=== PATIENT | male | born 1940 ===

== ENCOUNTER 2024-08-18 12:15 | Inpatient (IN) | payer OTHER ==
[~2024-08-18] VITALS: Ht 177.8 cm; Wt 74.4 kg
[2024-08-18] MEDS ORDERED: COZAAR50 MG PO (13:22)
[2024-08-18] MEDS ORDERED: METHOTREXATE2.5 MG PO (13:22)
[2024-08-18] MEDS ORDERED: ATORVASTATIN CA20 MG PO (13:22)
[2024-08-18] MEDS ORDERED: SINGULAIR10 MG PO (13:23)
[2024-08-18] MEDS ORDERED: ELIQUIS2.5 MG PO (13:23)
[2024-08-18] MEDS ORDERED: FINASTERIDE5 MG PO (13:23)
[2024-08-18] MEDS ORDERED: TAMS0.4C PO (13:23)
[2024-08-18] MEDS ORDERED: ADVAIR HFA 230/12 GM IH (13:24)
[2024-08-18 13:25] VITALS: BP 145/86
[2024-08-24] MEDS ORDERED: LIDOCAINE HCL 1%/EPINEPHRINE 20ML VIAL IJ ONE (08:45)
[2024-08-24] MEDS ORDERED: CEFTRIAXONE SODIUM 2,000 MG VIAL IV ONE (08:45)
[2024-08-24] MEDS ORDERED: BUPIVACAINE HCL 30 ML VIAL IJ ONE (08:45)
[2024-08-24] MEDS ORDERED: METRONIDAZOLE/SODIUM CHLORIDE 500 MG/100 ML PIGGYBACK IV ONE (08:45)
[2024-08-24] MEDS ORDERED: ONDANSETRON HCL 2 MG/ML VIAL IV PRN (09:30)
[2024-08-24] MEDS ORDERED: OxyCODONE HCL 5 MG TABLET (ROXICODONE) PO PRN (09:30)
[2024-08-24] MEDS ORDERED: 0.9 % SODIUM CHLORIDE 1,000 ML IV SCH (09:30)
[2024-08-24] MEDS ORDERED: DEXTROSE 50 % IN WATER 0.5 G/ML DISP.SYRIN IV PRN (09:30)
[2024-08-24] MEDS ORDERED: MORPHINE SULFATE 4 MG/ML CARTRIDGE IV PRN (09:30)
[2024-08-24] MEDS ORDERED: SUGAMMADEX SODIUM 200 MG/2 ML VIAL IV ONE (10:00)
[2024-08-24] MEDS ORDERED: MORPHINE SULFATE 4 MG/ML VIAL IV ONE (11:45)
[2024-08-24] MEDS ORDERED: HYOSCYAMINE SULFATE 0.125 MG TAB.SUBL SL SCH (13:00)
[2024-08-24] MEDS ORDERED: SIMETHICONE 125 MG CAPSULE PO SCH (13:00)
[2024-08-24] MEDS ORDERED: ACETAMINOPHEN 500 MG GEL..CAP PO SCH (14:00)
[2024-08-24] MEDS ORDERED: DEXTROSE 50 % IN WATER 0.5 G/ML VIAL IV PRN (14:30)
[2024-08-24 15:26] LABS: BASO % 0.1 % (0.1-1.2); EOS # 0.00 (0.04-0.54); EOS % 0.0 % (0.7-7.0); LYMPH # 0.69 (1.18-3.74); LYMPH % 4.9 % (19.3-53.1); MEAN PLATELET VOLUME 9.40 fl (9.4-12.4); MONO # 0.91 (0.24-0.82); MONO % 6.5 % (4.7-12.5); NEUT # 12.40 (1.56-6.13); NEUT % 88.0 % (34.0-71.1); RED CELL DISTRIBUTION WIDTH 14.9 % (11.6-14.4)
[2024-08-24] MEDS ORDERED: GABAPENTIN 300 MG CAPSULE PO SCH (17:00)
[2024-08-24] MEDS ORDERED: POLYETHYLENE GLYCOL 3350 17 GM BLIST.PACK PO SCH (17:00)
[2024-08-24] MEDS ORDERED: METOCLOPRAMIDE HCL 5 MG/ML VIAL IV SCH (17:00)
[2024-08-24] MEDS ORDERED: FAMOTIDINE/PF 20 MG/2 ML VIAL IV PUSH SCH (21:00)
[2024-08-24 22:37] VITALS: BP 120/60
[2024-08-25 01:01] VITALS: BP 120/66; O2SAT 94
[2024-08-25 08:00] VITALS: BP 113/66; O2SAT 94
[2024-08-25 08:35] LABS: BASO % 0.2 % (0.1-1.2); EOS # 0.07 (0.04-0.54); EOS % 0.6 % (0.7-7.0); LYMPH # 1.04 (1.18-3.74); LYMPH % 9.3 % (19.3-53.1); MEAN PLATELET VOLUME 9.60 fl (9.4-12.4); MONO # 0.87 (0.24-0.82); MONO % 7.8 % (4.7-12.5); NEUT # 9.14 (1.56-6.13); NEUT % 81.7 % (34.0-71.1); RED CELL DISTRIBUTION WIDTH 14.8 % (11.6-14.4)
[2024-08-25] MEDS ORDERED: LACTULOSE 20 G/30 ML BLIST.PACK PO SCH (09:00)
[2024-08-25] MEDS ORDERED: FINASTERIDE 5 MG TABLET PO SCH (09:00)
[2024-08-25] MEDS ORDERED: TAMSULOSIN HCL 0.4 MG CAP PO SCH (09:00)
[2024-08-25] MEDS ORDERED: LOSARTAN POTASSIUM 50 MG TABLET PO SCH (09:00)
[2024-08-25] MEDS ORDERED: LACTOBACILLUS ACIDOPHILUS 1 CAP CAP PO SCH (09:00)
[2024-08-25 09:11] VITALS: O2SAT 95
[2024-08-25 09:12] LABS: BUN CREA RATIO 12.0 (7.0-25.0); CREATININE SERUM 0.99 mg/dL (0.70-1.30); GFR 72.37; GLUCOSE FASTING 124.0 mg/dL (65-100); OSMOLALITY SERUM 282.0 MOSM/KG (275-295)
[2024-08-25 16:00] VITALS: BP 117/64; O2SAT 96
[2024-08-25] MEDS ORDERED: MONTELUKAST SODIUM 10 MG TABLET PO SCH (17:00)
[2024-08-25] MEDS ORDERED: ENOXAPARIN SODIUM 40 MG/0.4 ML SYRINGE SUBCUTANEO SCH (17:00)
[2024-08-26 01:22] VITALS: BP 117/63; O2SAT 97
[2024-08-26 08:00] VITALS: BP 127/73; O2SAT 98
[2024-08-26] MEDS ORDERED: ENOXAPARIN SODIUM 40 MG/0.4 ML SYRINGE SUBCUTANEO SCH (09:00)
[2024-08-26 16:00] VITALS: BP 153/69; O2SAT 95
[2024-08-27 00:52] VITALS: BP 154/74; O2SAT 97
[2024-08-27 07:34] LABS: BASO % 0.0 % (0.1-1.2); EOS # 0.01 (0.04-0.54); EOS % 0.3 % (0.7-7.0); LYMPH # 0.81 (1.18-3.74); LYMPH % 22.3 % (19.3-53.1); MEAN PLATELET VOLUME 10.10 fl (9.4-12.4); MONO # 0.39 (0.24-0.82); MONO % 10.7 % (4.7-12.5); NEUT # 2.42 (1.56-6.13); NEUT % 66.7 % (34.0-71.1); RED CELL DISTRIBUTION WIDTH 14.8 % (11.6-14.4)
[2024-08-27 08:02] LABS: ALT/SGPT 16.0 U/L (12-78); AST/SGOT 14.0 U/L (15-37); BILIRUBIN TOTAL 0.7 mg/dL (0.3-1.2); BUN CREA RATIO 18.0 (7.0-25.0); CREATININE SERUM 1.15 mg/dL (0.70-1.30); GFR 60.88; GLOBULINA 3.5 G/DL (2.4-3.5); GLUCOSE FASTING 150.0 mg/dL (65-100); OSMOLALITY SERUM 291.0 MOSM/KG (275-295)
[2024-08-27 08:14] VITALS: BP 154/76; O2SAT 95
[2024-08-27 17:35] VITALS: BP 148/75; O2SAT 95
[2024-08-28 01:44] VITALS: BP 140/75; O2SAT 97
[2024-08-28 08:14] VITALS: BP 122/71; O2SAT 94
[2024-08-28] MEDS ORDERED: PANTOPRAZOLE SODIUM 40 MG/VIAL VIAL IV PUSH STA (10:14)
[2024-08-28] MEDS ORDERED: PANTOPRAZOLE SODIUM 40 MG TABLET.DR PO SCH (10:15)
[2024-08-28] MEDS ORDERED: PANTOPRAZOLE SODIUM 80 MG in 0.9 % SODIUM CHLORIDE 100 ML IV SCH (10:30)
[2024-08-28 16:00] VITALS: BP 123/65; O2SAT 94
[2024-08-29 00:47] VITALS: BP 147/76; O2SAT 96
[2024-08-29 07:36] LABS: BASO % 0.2 % (0.1-1.2); EOS # 0.04 (0.04-0.54); EOS % 0.7 % (0.7-7.0); LYMPH # 1.08 (1.18-3.74); LYMPH % 20.0 % (19.3-53.1); MEAN PLATELET VOLUME 10.30 fl (9.4-12.4); MONO # 0.78 (0.24-0.82); NEUT # 3.43 (1.56-6.13); NEUT % 63.7 % (34.0-71.1); RED CELL DISTRIBUTION WIDTH 15.0 % (11.6-14.4)
[2024-08-29 07:53] LABS: BUN CREA RATIO 33.0 (7.0-25.0); CREATININE SERUM 0.96 mg/dL (0.70-1.30); GFR 74.99; GLUCOSE FASTING 119.0 mg/dL (65-100); OSMOLALITY SERUM 295.0 MOSM/KG (275-295)
[2024-08-29 08:00] VITALS: BP 124/58; O2SAT 95
[2024-08-29 08:34] LABS: BAND MAN 4.0 %; BASOPHIL MAN 1.0 %; LYMPHOCYTE MAN 25.0 %; MONO % 14.5 % (4.7-12.5); MONOCYTE MAN 8.0 %; NEUTROPHILS MAN 58.0 %
[2024-08-29 14:16] LABS: BUN CREA RATIO 32.0 (7.0-25.0); CHOL HDL RATIO 3.1 (0-5.0); CREATININE SERUM 0.9 mg/dL (0.70-1.30); GFR 80.79; GLUCOSE FASTING 132.0 mg/dL (65-100); HDL 34.0 mg/dl (40-60); LDL 48.0 mg/dl (0-130); OSMOLALITY SERUM 296.0 MOSM/KG (275-295); VLDL 24.0 (0-39)
[2024-08-29] MEDS ORDERED: AA 4.25%/CAL/LYTES/DEXT 5% 1,000 ML PERIFERAL SCH (17:00)
[2024-08-30] VITALS: BP 129/61; O2SAT 95
[2024-08-30 08:00] VITALS: BP 136/63; O2SAT 97
[2024-08-30 16:00] VITALS: BP 128/68; O2SAT 98
[2024-08-31 01:13] VITALS: BP 131/78; O2SAT 97
[2024-08-31 07:06] LABS: BASO % 0.7 % (0.1-1.2); EOS # 0.12 (0.04-0.54); EOS % 1.6 % (0.7-7.0); LYMPH # 1.26 (1.18-3.74); LYMPH % 16.8 % (19.3-53.1); MEAN PLATELET VOLUME 11.40 fl (9.4-12.4); MONO # 1.06 (0.24-0.82); NEUT # 4.64 (1.56-6.13); NEUT % 61.6 % (34.0-71.1); RED CELL DISTRIBUTION WIDTH 15.1 % (11.6-14.4)
[2024-08-31 07:38] LABS: MONO % 14.1 % (4.7-12.5)
[2024-08-31 07:39] LABS: EOSINOPHIL MAN 2.0 %; LYMPHOCYTE MAN 26.0 %; MONOCYTE MAN 7.0 %; NEUTROPHILS MAN 62.0 %
[2024-08-31 07:54] LABS: ALT/SGPT 18.0 U/L (12-78); AST/SGOT 15.0 U/L (15-37); BILIRUBIN TOTAL 0.42 mg/dL (0.3-1.2); BUN CREA RATIO 33.0 (7.0-25.0); CREATININE SERUM 0.81 mg/dL (0.70-1.30); GFR 91.23; GLOBULINA 3.0 G/DL (2.4-3.5); GLUCOSE FASTING 150.0 mg/dL (65-100); OSMOLALITY SERUM 295.0 MOSM/KG (275-295)
[2024-08-31] MEDS ORDERED: DIATRIZOATE MEGLUMINE, SODIUM 30 ML BOTTLE PO NR (11:26)
[2024-08-31 17:12] VITALS: BP 130/68; O2SAT 99
[2024-09-01 02:00] VITALS: BP 113/63; O2SAT 98
[2024-09-01 06:22] LABS: BASO % 0.3 % (0.1-1.2); EOS # 0.03 (0.04-0.54); EOS % 0.2 % (0.7-7.0); LYMPH # 1.48 (1.18-3.74); LYMPH % 10.1 % (19.3-53.1); MEAN PLATELET VOLUME 10.70 fl (9.4-12.4); MONO # 1.00 (0.24-0.82); MONO % 6.8 % (4.7-12.5); NEUT # 11.71 (1.56-6.13); NEUT % 80.1 % (34.0-71.1); RED CELL DISTRIBUTION WIDTH 15.3 % (11.6-14.4)
[2024-09-01 06:49] LABS: BUN CREA RATIO 26.0 (7.0-25.0); CREATININE SERUM 0.96 mg/dL (0.70-1.30); GFR 74.99; GLUCOSE FASTING 164.0 mg/dL (65-100); OSMOLALITY SERUM 293.0 MOSM/KG (275-295)
[2024-09-01 08:00] VITALS: BP 103/64; O2SAT 94
[2024-09-01 17:24] VITALS: BP 111/59; O2SAT 96
[2024-09-02 01:14] VITALS: BP 107/61; O2SAT 95
[2024-09-02 07:31] LABS: BASO % 0.2 % (0.1-1.2); EOS # 0.23 (0.04-0.54); EOS % 2.8 % (0.7-7.0); LYMPH # 1.53 (1.18-3.74); LYMPH % 18.4 % (19.3-53.1); MEAN PLATELET VOLUME 10.60 fl (9.4-12.4); MONO # 0.84 (0.24-0.82); MONO % 10.1 % (4.7-12.5); NEUT # 5.48 (1.56-6.13); NEUT % 66.1 % (34.0-71.1); RED CELL DISTRIBUTION WIDTH 15.6 % (11.6-14.4)
[2024-09-02 08:00] VITALS: BP 121/70; O2SAT 96
[2024-09-02 08:27] LABS: BUN CREA RATIO 27.0 (7.0-25.0); CREATININE SERUM 0.88 mg/dL (0.70-1.30); GFR 82.91; GLUCOSE FASTING 140.0 mg/dL (65-100); OSMOLALITY SERUM 293.0 MOSM/KG (275-295)
[2024-09-02 18:02] VITALS: BP 119/60; O2SAT 97
[2024-09-03 02:10] VITALS: BP 117/55; O2SAT 96
[2024-09-03 07:00] VITALS: BP 119/70; O2SAT 96
[2024-09-03] MEDS ORDERED: IPRATROPIUM BROMIDE 0.5 MG/2.5 ML AMPUL.NEB IH SCH (16:00)
[2024-09-03] MEDS ORDERED: LEVALBUTEROL HCL 0.63 MG/3 ML SOLUTION IH SCH (16:00)
[2024-09-03 17:00] VITALS: BP 135/73; O2SAT 93
[2024-09-03] MEDS ORDERED: PATIENTS OWN MEDICATION (MEDICAMENTO EN PISO) IH SCH (17:00)
[2024-09-03 21:03] LABS: ABG PH 7.468 (7.35-7.45)
[2024-09-03 21:04] LABS: ABG PO2 75.5 mmHg (80-100); BICARBONATE 19.7 mmol/l (23-25); o2 21 %
[2024-09-04] VITALS (8 sets, daily range): BP systolic 118–139; BP diastolic 73–83; O2SAT 90–97
[2024-09-04 08:13] LABS: BASO % 0.2 % (0.1-1.2); EOS # 0.15 (0.04-0.54); EOS % 1.4 % (0.7-7.0); LYMPH # 1.28 (1.18-3.74); LYMPH % 11.6 % (19.3-53.1); MEAN PLATELET VOLUME 11.50 fl (9.4-12.4); MONO # 1.01 (0.24-0.82); MONO % 9.1 % (4.7-12.5); NEUT # 8.45 (1.56-6.13); NEUT % 76.4 % (34.0-71.1); RED CELL DISTRIBUTION WIDTH 15.9 % (11.6-14.4)
[2024-09-04 08:43] LABS: BUN CREA RATIO 24.0 (7.0-25.0); CREATININE SERUM 0.87 mg/dL (0.70-1.30); GFR 84.01; GLUCOSE FASTING 149.0 mg/dL (65-100); OSMOLALITY SERUM 291.0 MOSM/KG (275-295)
[2024-09-04] MEDS ORDERED: ACETAMINOPHEN 500 MG GEL..CAP PO PRN (13:45)
[2024-09-04] MEDS ORDERED: PIPERACILLIN/TAZOBACTAM SODIUM 3.375 GM in 0.9 % SODIUM CHLORIDE 100 ML IV SCH (14:00)
[2024-09-04] MEDS ORDERED: METOCLOPRAMIDE HCL 5 MG/ML VIAL IV SCH (17:00)
[2024-09-05] VITALS (12 sets, daily range): BP systolic 82–119; BP diastolic 48–79; O2SAT 86–99
[2024-09-05 04:18] LABS: ABG PH 7.445 (7.35-7.45)
[2024-09-05 04:19] LABS: ABG PO2 55.3 mmHg (80-100)
[2024-09-05 04:20] LABS: BICARBONATE 19.5 mmol/l (23-25); o2 32 %
[2024-09-05 08:07] LABS: BASO % 0.4 % (0.1-1.2); EOS # 0.03 (0.04-0.54); EOS % 0.2 % (0.7-7.0); LYMPH # 0.95 (1.18-3.74); LYMPH % 6.0 % (19.3-53.1); MEAN PLATELET VOLUME 11.50 fl (9.4-12.4); MONO # 0.98 (0.24-0.82); MONO % 6.2 % (4.7-12.5); NEUT # 13.73 (1.56-6.13); NEUT % 86.1 % (34.0-71.1); RED CELL DISTRIBUTION WIDTH 15.8 % (11.6-14.4)
[2024-09-05 08:23] LABS: BUN CREA RATIO 25.0 (7.0-25.0); CREATININE SERUM 0.95 mg/dL (0.70-1.30); GFR 75.9; GLUCOSE FASTING 166.0 mg/dL (65-100); OSMOLALITY SERUM 289.0 MOSM/KG (275-295)
[2024-09-05] MEDS ORDERED: DILTIAZEM HCL 125 MG in DEXTROSE 5 % IN WATER 125 ML IV SCH (10:45)
[2024-09-05] MEDS ORDERED: DILTIAZEM HCL 125 MG in 0.9 % SODIUM CHLORIDE 100 ML IV SCH (11:15)
[2024-09-05 15:35] LABS: ABG PH 7.344 (7.35-7.45); ABG PO2 64.0 mmHg (80-100); BICARBONATE 20.6 mmol/l (23-25)
[2024-09-05 15:57] LABS: o2 70 %
[2024-09-05] MEDS ORDERED: SODIUM CHLORIDE FOR INHALATION 1 VIAL.NEB IH SCH (17:00)
[2024-09-05] MEDS ORDERED: PIPERACILLIN/TAZOBACTAM SODIUM 4.5 GM VIAL IV SCH (17:00)
[2024-09-05] MEDS ORDERED: ENOXAPARIN SODIUM 80 MG/0.8 ML SYRINGE SUBCUTANEO SCH (21:00)
[2024-09-06 00:34] VITALS: O2SAT 89
[2024-09-06 01:05] VITALS: BP 75/44; O2SAT 91
[2024-09-06 01:22] VITALS: BP 92/62
[2024-09-06] MEDS ORDERED: NOREPINEPHRINE BITARTRATE 8 MG in DEXTROSE 5 % IN WATER 250 ML IV SCH (03:15)
[2024-09-06 07:25] LABS: BUN CREA RATIO 20.0 (7.0-25.0); CREATININE SERUM 2.18 mg/dL (0.70-1.30); GFR 29.1; GLUCOSE FASTING 187.0 mg/dL (65-100); OSMOLALITY SERUM 293.0 MOSM/KG (275-295)
[2024-09-06 07:47] VITALS: O2SAT 83
[2024-09-06 08:00] VITALS: BP 66/49; O2SAT 80
[2024-09-06] MEDS ORDERED: MEROPENEM 500 MG/VIAL VIAL IV SCH (09:00)
[2024-09-06 09:18] LABS: ALT/SGPT 21.0 U/L (12-78); AST/SGOT 30.0 U/L (15-37); BILIRUBIN TOTAL 0.63 mg/dL (0.3-1.2); BILIRUBIN,CONJUGATED 0.39 mg/dL (0.0-0.2); CHOL HDL RATIO 7.7 (0-5.0); LDL 49.0 mg/dl (0-130); VLDL 25.0 (0-39)
[2024-09-06 09:30] LABS: HDL 11.0 mg/dl (40-60)
[2024-09-06] MEDS ORDERED: PROPOFOL 10 MG/1 ML VIAL 50ML IV SCH (09:45)
[2024-09-06] MEDS ORDERED: PROPOFOL 100 ML IV SCH (09:45)
[2024-09-06 09:54] LABS: UREA CLEARANCE 2.9 ML/MIN
[2024-09-06 10:52] LABS: INR 1.32
[2024-09-06 11:28] VITALS: O2SAT 34
[2024-09-06 11:43] LABS: ABG PH 7.150 (7.35-7.45)
[2024-09-06 11:44] LABS: ABG PO2 53.5 mmHg (80-100); BICARBONATE 19.9 mmol/l (23-25)
[2024-09-06 11:46] LABS: o2 100 %
== END 2024-09-06 12:10 | disposition expired | DRG 329 ==
LOC: O/R 08-24 05:13 → SURH 08-24 07:00
PROVIDERS: Internal Medicine; Surgery; ADMIT Colon & Rectal Surgery; ATTEND Colon & Rectal Surgery
PROC: 07BB4ZZ Excision of Mesenteric Lymphatic, Percutaneous Endoscopic Approach (ICD-10-PCS; 2024-08-24)
PROC: 3E0F7GC Introduction of Other Therapeutic Substance into Respiratory Tract, Via Natural or Artificial Opening (ICD-10-PCS; 2024-08-24)
PROC: 8E0W4CZ Robotic Assisted Procedure of Trunk Region, Percutaneous Endoscopic Approach (ICD-10-PCS; 2024-08-24)
PROC: 0DTF4ZZ Resection of Right Large Intestine, Percutaneous Endoscopic Approach (ICD-10-PCS; principal; 2024-08-24 07:00)
PROC: 02HV33Z Insertion of Infusion Device into Superior Vena Cava, Percutaneous Approach (ICD-10-PCS; 2024-08-28)
PROC: BW21ZZZ Computerized Tomography (CT Scan) of Abdomen and Pelvis (ICD-10-PCS; 2024-08-31)
PROC: B246ZZZ Ultrasonography of Right and Left Heart (ICD-10-PCS; 2024-09-04)
PROC: 4A12X4Z Monitoring of Cardiac Electrical Activity, External Approach (ICD-10-PCS; 2024-09-04)
PROC: 5A09557 Assistance with Respiratory Ventilation, Greater than 96 Consecutive Hours, Continuous Positive Airway Pressure (ICD-10-PCS; 2024-09-05)
PROC: 0BH18EZ Insertion of Endotracheal Airway into Trachea, Via Natural or Artificial Opening Endoscopic (ICD-10-PCS; 2024-09-06)
DX: D12.2 Benign neoplasm of ascending colon (principal); A41.9 Sepsis, unspecified organism; J95.89 Other postprocedural complications and disorders of respiratory system, not elsewhere classified; K91.30 Postprocedural intestinal obstruction, unspecified as to partial versus complete; N17.8 Other acute kidney failure; R09.02 Hypoxemia; I48.91 Unspecified atrial fibrillation; R00.0 Tachycardia, unspecified; E78.5 Hyperlipidemia, unspecified; I12.9 Hypertensive chronic kidney disease with stage 1 through stage 4 chronic kidney disease, or unspecified chronic kidney disease; N18.9 Chronic kidney disease, unspecified; R09.2 Respiratory arrest
CPT/HCPCS: 74176; 93306; 36573; 94640; 93228; 44204; 38570; S2900